=== PATIENT | female | born 1970 | race American Indian/Alaskan Native ===

== ENCOUNTER 2019-01-28 07:51 | Outpatient (CLI) | payer BC ==
--- NOTE | 2019-01-28 08:53 | Mammography Report ---
BILATERAL DIGITAL SCREENING MAMMOGRAM WITH CAD INDICATION: Routine screening mammography. TECHNIQUE: Digital bilateral 2D mammography was obtained in the craniocaudal and mediolateral obliq ue projections. This examination was interpreted with the benefit of Computer-Aided Detection analysi s. COMPARISON: 01/22/2018, 12/28/2016. FINDINGS: Breast Density: The breasts are heterogeneously dense, which may obscure small masses. There is an asymmetry in the slightly superior subareolar right breast on the MLO view only. No suspi cious findings within the left breast. IMPRESSION: Asymmetry within the slightly superior subareolar right breast on the MLO view only. Additional mammo graphic views and possible subsequent targeted ultrasound is recommended for further evaluation. BI-RADS Category 0: Incomplete. Needs additional imaging evaluation and/or prior mammograms for jarvis rison. A "normal" or negative report should not discourage follow up or biopsy of a clinically significant f inding. A written summary of these findings will be mailed to the patient. The patient will be entered into a mammography reporting system which will generate a reminder letter for the patient's next appointmen t at the appropriate interval. The [employer] recommends yearly mammograms starting at age 40 and continuing as l juli as a woman is in good health. Breast MRI is recommended for women with an approximate 20-25% or greater lifetime risk of breast cancer, including women with a strong family history of breast or ova yu cancer or who have been treated for Hodgkin's disease. Signer Name: Vinayak Caruso MD Signed: 01/28/2019 8:48 AM Workstation Name: [id number]
== END 2019-01-28 07:52 | disposition home or self-care (01) ==
LOC: MAMMO 07:51
PROVIDERS: ATTEND Family Medicine Adult Medicine
DX: Z12.31 Encounter for screening mammogram for malignant neoplasm of breast (principal)
CPT/HCPCS: 77067

== ENCOUNTER 2019-02-28 08:04 | Outpatient (CLI) | payer BC ==
--- NOTE | 2019-02-28 10:20 | Ultrasound Report ---
LIMITED RUQ ABDOMINAL ULTRASOUND INDICATION: ABNORMAL LIVER. COMPARISON: No relevant prior imaging study available. FINDINGS: Pancreas: Visualized portions show no significant abnormality. Abdominal Aorta: No significant abnormality. IVC: No significant abnormality. Liver: The liver measures 14.7 cm in length. No significant abnormality. Normal hepatopedal blood fl ow in the main portal vein. Gallbladder: At least one gallstone is identified in the neck of the gallbladder measuring 1.1 x 0.7 cm. No biliary dilatation or wall thickening.. Bile ducts: No significant abnormality. Common bile duct measures 3.2 mm. Right kidney: No significant abnormality visualized.. Free fluid: None. Additional Findings: None. IMPRESSION: Cholelithiasis. . Signer Name: Bud Hutson Jr, MD Signed: 02/28/2019 10:16 AM Workstation Name: [id number]
--- NOTE | 2019-02-28 11:38 | Mammography Report ---
RIGHT DIGITAL DIAGNOSTIC MAMMOGRAM WITH CAD 02/28/2019 RIGHT LIMITED BREAST ULTRASOUND INDICATION: Recalled for asymmetry. ABN MAMMO TECHNIQUE: Digital right mammographic imaging was performed. Spot compression views were obtained. L imited ultrasound was performed. This examination was interpreted with the benefit of Computer-Aided Detection (CAD) analysis. COMPARISON: 01/28/2019 screening mammogram. FINDINGS: Breast Density: The breast is heterogeneously dense, which may obscure small masses. MAMMOGRAPHIC FINDINGS: Lateral medial and spot compression MLO views were obtained. Near complete eff acement of asymmetry on the spot images. The lateral view is negative. ULTRASOUND FINDINGS: Targeted ultrasound evaluation was performed of the area of interest. Ultrasou nd of the retroareolar area was performed and demonstrated normal structures. No mass, cyst or shadow ing. IMPRESSION: Negative mammogram and negative targeted left breast ultrasound. Follow up recommendation: Routine yearly BI-RADS Category 1: Negative. A "normal" or negative report should not discourage follow up or biopsy of a clinically significant f inding. A written summary of these findings will be mailed to the patient. The patient will be entered into a mammography reporting system which will generate a reminder letter for the patient's next appointmen t at the appropriate interval. According to the [employer], yearly mammograms are recommended starting at age 40 and continuing as long as a woman is in good health. Breast MRI is recommended for women with an aminata roximately 20-25% or greater lifetime risk of breast cancer, including women with a strong family his tory of breast or ovarian cancer and women who have been treated for Hodgkin's disease. Signer Name: Sebastian Rivera MD Signed: 02/28/2019 11:33 AM Workstation Name: [id number]
== END 2019-02-28 08:05 | disposition home or self-care (01) ==
LOC: MAMMO 08:04
PROVIDERS: ATTEND Family Medicine Adult Medicine
DX: K80.20 Calculus of gallbladder without cholecystitis without obstruction (principal); R94.5 Abnormal results of liver function studies; R92.2 Inconclusive mammogram
CPT/HCPCS: 76705; 77066

== ENCOUNTER 2020-06-18 14:04 | Outpatient (CLI) | payer BC ==
--- NOTE | 2020-06-18 18:01 | Mammography Report ---
DIGITAL SCREENING MAMMOGRAM WITH CAD, 06/18/2020 CLINICAL INFORMATION / INDICATION: Routine screening mammography. TECHNIQUE: Digital bilateral 2D mammography was obtained in the craniocaudal and mediolateral obliqu e projections. This examination was interpreted with the benefit of Computer-Aided Detection analysis . COMPARISON: 02/28/2019, 01/28/2019, 01/22/2018 FINDINGS: Breast Density: The breasts are heterogeneously dense, which may obscure small masses. No dominant mass, suspicious calcifications, or architectural distortion in either breast. IMPRESSION: No mammographic evidence of malignancy. Follow up recommendation: Routine yearly BI-RADS Category 1: Negative. A "normal" or negative report should not discourage follow up or biopsy of a clinically significant f inding. A written summary of these findings will be mailed to the patient. The patient will be entered into a mammography reporting system which will generate a reminder letter for the patient's next appointmen t at the appropriate interval. The [employer] recommends yearly mammograms starting at age 40 and continuing as l juli as a woman is in good health. Breast MRI is recommended for women with an approximate 20-25% or greater lifetime risk of breast cancer, including women with a strong family history of breast or ova yu cancer or who have been treated for Hodgkin's disease. Signer Name: Demar Leal MD Signed: 06/18/2020 5:57 PM Workstation Name: [id number]
== END 2020-06-18 14:05 | disposition home or self-care (01) ==
LOC: MAMMO 14:04
PROVIDERS: ATTEND Family Medicine Adult Medicine
DX: Z12.31 Encounter for screening mammogram for malignant neoplasm of breast (principal)
CPT/HCPCS: 77067

== ENCOUNTER 2021-10-31 07:54 | Outpatient (CLI) | payer BC ==
--- NOTE | 2021-11-01 16:47 | Mammography Report ---
DIGITAL SCREENING MAMMOGRAM WITH CAD, 10/31/2021 CLINICAL INFORMATION / INDICATION: Routine screening mammography. SCREENING MAMMOGRAM Z12.31 TECHNIQUE: Digital bilateral 2D mammography was obtained in the craniocaudal and mediolateral obliqu e projections. This examination was interpreted with the benefit of Computer-Aided Detection analysis . COMPARISON: Prior mammogram 06/18/2020 and 01/28/2019 FINDINGS: Breast Density: The breasts are extremely dense, which lowers the sensitivity of mammography. No dominant mass, suspicious calcifications, or architectural distortion in either breast. There has been no significant change compared with the prior examinations. IMPRESSION: No mammographic evidence of malignancy. Follow up recommendation: Routine yearly screening mammogram. BI-RADS Category 1: NEGATIVE A "normal" or negative report should not discourage follow up or biopsy of a clinically significant f inding. A written summary of these findings will be mailed to the patient. The patient will be entered into a mammography reporting system which will generate a reminder letter for the patient's next appointmen t at the appropriate interval. The [employer] recommends yearly mammograms starting at age 40 and continuing as l juli as a woman is in good health. Breast MRI is recommended for women with an approximate 20-25% or greater lifetime risk of breast cancer, including women with a strong family history of breast or ova yu cancer or who have been treated for Hodgkin's disease. Signer Name: Randa Gillette MD Signed: 11/01/2021 4:43 PM Workstation Name: [id number]
== END 2021-10-31 07:55 | disposition home or self-care (01) ==
LOC: MAMMO 07:54
PROVIDERS: ATTEND Family Medicine Adult Medicine
DX: Z12.31 Encounter for screening mammogram for malignant neoplasm of breast (principal)
CPT/HCPCS: 77067